=== PATIENT | male | born 1980 | race Caucasian/White ===

== ENCOUNTER 2019-03-18 06:59 | Day surgery (SDC) | payer BC ==
[~2019-03-18] VITALS: Ht 180.3 cm; Wt 161.5 kg
[~2019-03-18 06:59] MED LIST: COZAAR50 MG PO; PROZAC40 MG PO
[2019-03-18 07:23] LABS: BASOPHILS 0.4 % (0-2); EOSINOPHILS 1.6 % (0-7); HEMATOCRIT 45.9 % (42.0-54.0); HEMOGLOBIN 15.6 g/dL (13.5-17.5); IMMATURE GRANULOCYTES 0.3 % (0-5); LYMPHOCYTES 20.6 % (15-50); MCH 29.8 pg (26.0-34.0); MCV 87.6 fL (80.0-100.0); MEAN PLATELET VOLUME 10.3 fL (7.4-10.4); MONOCYTES 5.4 % (2-11); NEUTROPHILS 71.7 % (40-80); PLATELET COUNT 288 10x3/uL (130-400); RBC 5.24 10x6/uL (4.20-6.10); WBC 12.1 10x3/uL (4.8-10.8)
[2019-03-18 07:36] LABS: CALC OSMOLALITY 278 mosm/kg (275-300); CALCIUM 9.4 mg/dL (8.5-10.1); CARBON DIOXIDE 25.6 mmol/L (21.0-32.0); CHLORIDE - SERUM 104 mmol/L (98-107); GLUCOSE 127 mg/dL (74-106); POTASSIUM - SERUM 3.6 mmol/L (3.5-5.1); SODIUM 139 mmol/L (136-145); UREA NITROGEN 9 mg/dL (7-18); eGFR NON AFRICAN AMERICAN 89 mL/min (90-120)
[2019-03-18 08:16] VITALS: BP 142/79; Ht 180.3 cm; Wt 161.5 kg
[2019-03-18] MEDS ORDERED: HYDROCODON-ACE1 EA10 PO (11:17)
--- NOTE | 2019-03-18 15:00 | NUR ---
1259 NORCO GIVEN TO PT WHO STATES HIS PAIN LEVEL IS A 7 OUT OF 10. 1325 PT SITTING UP IN CHAIR. STATES HIS PAIN LEVEL HAS GONE DOWN TO A 4 OUT OF 10.
--- NOTE | 2019-03-18 15:03 | NUR ---
1330 IV DC'D. CATHETER TIP INTACT. NO BLEEDING AT SITE. BANDAID APPLIED. DISCHARGE INSTRUCTIONS GIVEN TO PATIENT AND HIS . BOTH VERBALIZE THEIR UNDERSTANDING OF INSTRUCTIONS.
--- NOTE | 2019-03-24 07:19 | OP ---
PATIENT NAME: VIRY HUTCHINSON MEDICAL RECORD: [id number] :82 LOCATION:D.OPS ADMISSION DATE: SURGEON: ISSAC DOWNEY MD DATE OF OPERATION: 03/18/2019 PREOPERATIVE DIAGNOSES: 1. Ventral incisional hernia. 2. Hypertension. POSTOPERATIVE DIAGNOSES: 1. Ventral incisional hernia. 2. Hypertension. PROCEDURES: 1. Ventral hernia repair with 6.[address] mesh. 2. Diagnostic laparoscopy. SURGEON: Issac Downey MD REPORT OF PROCEDURE: A Veress needle was inserted in the left upper quadrant and the abdomen was insufflated. A 5-mm Visiport trocar was inserted in the left lateral abdomen. We could see the Veress needle and there was no sign of any injury to bowel or surrounding structures. The Veress needle was removed and a 5-mm trocar was placed in the left upper quadrant and another was then placed in the left lower quadrant, both under direct visualization. We could see the patient had a hernia defect in the patient's right lower quadrant, this was fat containing. We did a dissection of this tissue and there was a large amount of fatty tissue present within this constituting the omentum. We were able to take most of this down out of the hernia sac, but there was some adherent inside causing it to stay involved through the hernia defect. There was no sign of any bowel present within this and I did not see any evidence of another hernia defect anywhere in the abdominal cavity. We then made an incision over the hernia defect in the right lower quadrant through an old incision from a previous appendectomy. Electrocautery was used to dissect through the subcutaneous tissues and we entered the hernia sac. We were able to free up the adhesions present in the hernia sac and then removed the hernia sac down to the fascial edges. The fascia itself was very weak in this portion of his abdomen. We were eventually able to free up the overlying fatty tissue and place a 6.[address] mesh in an underlay fashion. This was sutured down using interrupted 0 Prolenes times 4. We then closed the fascial edges over top of this using running 0 Vicryl. The Ashli's was closed with a running 2-0 Vicryl. A total of 10 mL of 0.25% Marcaine with epinephrine was infused into the surrounding tissues and the skin incisions were closed with subcutaneous 5-0 Monocryl. COMPLICATIONS: None. CONDITION: Stable. ANESTHESIA: General endotracheal and local. BLOOD LOSS: Minimal. TRANSINT:[id number] Voice Confirmation ID: [id number] DOCUMENT ID: [id number] OPERATIVE REPORT [id number] VIRY HUTCHINSON CHRISTIAN MD at 0719 CC: YAMEL MERCADO MD [id number] DICTATION DATE: 03/18/19 1124 [employer]ATION SPECIALIST: 03/18/19 1220 [facility] 03/18/19 [id number] [place] [address]
== END 2019-03-18 13:42 | disposition home or self-care (01) ==
LOC: D.OPS 06:59
PROVIDERS: ATTEND Surgery
DX: K43.9 Ventral hernia without obstruction or gangrene (principal); I10 Essential (primary) hypertension; Z01.812 Encounter for preprocedural laboratory examination

== ENCOUNTER → 2019-06-30 07:09 | Outpatient (CLI) | payer BC ==
[2019-03-18 08:16] VITALS: BMI 49.7
[~2019-06-30 07:09] MED LIST changes: +HYDROCODON-ACE1 EA10 PO
== END | disposition home or self-care (01) ==
LOC: D.OPS 07:09 → D.RAD 10:30
PROVIDERS: ATTEND Surgery
DX: E66.01 Morbid (severe) obesity due to excess calories (principal)

== ENCOUNTER 2019-07-13 05:47 | Day surgery (SDC) | payer BC ==
[~2019-07-13] VITALS: Ht 180.3 cm; Wt 165.0 kg
[2019-07-13 06:03] LABS: HEMATOCRIT 44.7 % (42.0-54.0); HEMOGLOBIN 15.4 g/dL (13.5-17.5); MCH 30.9 pg (26.0-34.0); MCHC 34.5 g/dL (31.0-37.0); MCV 89.6 fL (80.0-100.0); MEAN PLATELET VOLUME 9.8 fL (7.4-10.4); RBC 4.99 10x6/uL (4.20-6.10); RDW 13.9 % (11.5-14.5); WBC 11.2 10x3/uL (4.8-10.8)
[2019-07-13 06:41] VITALS: BP 145/94; Ht 180.3 cm; Wt 165.0 kg
[2019-07-13] MEDS ORDERED: LEXAPRO10 MG PO (06:48)
[2019-07-13] MEDS ORDERED: CYMBALTA30 MG PO (06:49)
[2019-07-13] MEDS ORDERED: NORVASC5 MG PO (06:49)
--- NOTE | 2019-07-13 08:43 | NUR ---
0829-REC'D FROM GI LAB. AWAKE AND ALERT,DENIES PAIN.VSS. ABLE TO DRINK ICE WATER. IV PATENT TO RIGHT HAND AT KVO.CL IN EASY REACH, AT BEDSIDE.REVIEWED DISCHARGE CRITERIA.VERBALIZED UNDERSTANDING
--- NOTE | 2019-07-13 08:52 | NUR ---
0851-FULL LIQUID TRAY TO ROOM.
--- NOTE | 2019-07-13 09:17 | NUR ---
904-DISCHARGE CRITERIA MET.REMOVED IV FROM RIGHT WRIST WITH CATH INTACT,DISPOSED INTO SHARPS,COVERED WITH COTTON BALL,SECURED WITH BANDAID. REVIEWED POST OPERATIVE INSTRUCTIONS AND FOLLOW UP APPOINTMENT.VERBALIZED UNDERSTANDING.VSS.DENIES PAIN.
--- NOTE | 2019-07-13 09:18 | NUR ---
0908-PT DRESSED,ESCORTED OUT VIA W/C WITH SPOUSE AWAITING TO DRIVE HOME. DISCHARGE PAPERWORK IN HAND.DENIES COMPLAINTS
== END 2019-07-13 09:08 | disposition home or self-care (01) ==
LOC: D.OPS 05:47
PROVIDERS: Anesthesiology; ATTEND Surgery
DX: E66.01 Morbid (severe) obesity due to excess calories (principal); K21.9 Gastro-esophageal reflux disease without esophagitis; I10 Essential (primary) hypertension; Z68.43 Body mass index [BMI] 50.0-59.9, adult; G47.33 Obstructive sleep apnea (adult) (pediatric)